=== PATIENT | male | born 1955 | race African-American/Black ===

== ENCOUNTER 2017-02-12 10:02 | Emergency (ER) | payer OTHER ==
[~2017-02-12] VITALS: Ht 170.2 cm; Wt 75.0 kg
[2017-02-12] MEDS ORDERED: SODIUM CHLORIDE 0.9% 1,000 ML IV ONE (11:38)
[2017-02-12] MEDS ORDERED: KETOROLAC 60MG/2ML VIAL IM STA (11:38)
[2017-02-12] MEDS ORDERED: TAMSULOSIN HCL 0.4MG SR CAPSULE PO ONE (11:45)
[2017-02-12] MEDS ORDERED: KETOROLAC 30MG/ML VIAL IV STA (12:08)
[2017-02-12 12:10] LABS: BASOPHILS % 1.2 % (0.0-2.0); EOSINOPHILS % 0.4 % (0.0-5.0); HEMATOCRIT. 43.2 % (42.0-52.0); LYMPHOCYTES % 18.3 % (20.0-50.0); MEAN CORPUSCULAR HEMOGLOBIN 30.9 pg (28.0-32.0); MEAN CORPUSCULAR HGB CONC 34.6 g/dL (31.0-37.0); MEAN CORPUSCULAR VOLUME 89.3 fL (80.0-94.0); MEAN PLATELET VOLUME 7.5 fl (7.4-10.4); MONOCYTES % 7.6 % (2.0-8.0); NEUTROPHILS % 72.5 % (40.0-76.0); PLATELET 188 x1000/uL (130-400); RED BLOOD CELL COUNT 4.84 mill/uL (4.7-6.1); RED CELL DISTRIBUTION WIDTH 13.4 % (11.6-14.6); WHITE BLOOD COUNT 4.8 x1000/uL (4.5-11.0)
[2017-02-12 12:22] LABS: ALANINE AMINOTRANSFERASE 26 IU/L (13-61); ALBUMIN 3.9 g/dL (3.4-5.0); ANION GAP 10; CARBON DIOXIDE 26 mEq/L (21-32); CHLORIDE 108 mEq/L (98-107); INDEX HEMOLYSI 1 (1-3); INDEX ICTERIC 1 (1-4); INDEX LIPEMIC 1 (1-3); UREA NITROGEN BLOOD 10 mg/dL (7-21)
[2017-02-12 12:25] LABS: eGFR > 60 mL/min (>60)
[2017-02-12 12:48] LABS: CLARITY URINE CLOUDY (CLEAR); COLOR URINE YELLOW (YELLOW); GLUCOSE URINE NEGATIVE (NEGATIVE); KETONES URINE NEGATIVE (NEGATIVE); LEUKOCYTE ESTERASE URINE 3+ (NEGATIVE); NITRITE URINE NEGATIVE (NEGATIVE); OCCULT BLOOD URINE 2+ (NEGATIVE); PROTEIN URINE NEGATIVE (NEGATIVE); SPECIFIC GRAVITY URINE 1.005 (1.005-1.030); UROBILINOGEN URINE 0.2 E.U./dL (0.2-1.0)
[2017-02-12 13:17] LABS: *AMPHETAMINES SCREEN URINE NEGATIVE (NEGATIVE); *BARBITURATES SCREEN URINE NEGATIVE (NEGATIVE); *BENZODIAZEPINES SCREEN URINE NEGATIVE (NEGATIVE); *COCAINE SCREEN URINE NEGATIVE (NEGATIVE); CANNABINOID URINE SCREEN NEGATIVE (NEGATIVE); ECSTASY MDMA SCREEN URINE NEGATIVE (NEGATIVE); METHADONE URINE SCREEN NEGATIVE (NEGATIVE); OPIATES URINE SCREEN NEGATIVE (NEGATIVE); PHENCYCLIDINE URINE SCREEN NEGATIVE (NEGATIVE)
[2017-02-12 13:21] LABS: WBC URINE TNTC /hpf (0-2)
[2017-02-12 13:22] LABS: BACTERIA URINE 1+; RBC URINE 0-2 /hpf (0-2); SQUAMOUS EPITHELIAL CELL URINE RARE /lpf (RARE/1+)
[2017-02-12 14:27] VITALS: BP 111/66
== END 2017-02-12 14:58 | disposition home or self-care (01) ==
LOC: ER 12:31
DX: N39.0 Urinary tract infection, site not specified (principal)
CPT/HCPCS: 36415; 74176; 80053; 80305; 81001; 85025; 96361; 96374; 99285; J1885; J7030; Z7610

== ENCOUNTER 2019-12-21 03:10 | Emergency (ER) | payer SELFPAY ==
[~2019-12-21] VITALS: Ht 152.4 cm; Wt 71.0 kg
[2019-12-21 04:18] VITALS: BP 138/84
== END 2019-12-21 04:18 | disposition home or self-care (01) ==
LOC: ER 03:10
DX: J02.9 Acute pharyngitis, unspecified (principal); Z87.442 Personal history of urinary calculi
CPT/HCPCS: 99281

== ENCOUNTER 2020-01-15 10:20 | Emergency (ER) | payer OTHER ==
[~2020-01-15] VITALS: Ht 165.1 cm; Wt 70.5 kg
[2020-01-15] MEDS ORDERED: ACETAMINOPHEN WITH CODEINE 300/30MG TABLET PO STA (11:13)
[2020-01-15 11:35] LABS: CLARITY URINE CLEAR (CLEAR); COLOR URINE YELLOW (YELLOW); KETONES URINE NEGATIVE (NEGATIVE); LEUKOCYTE ESTERASE URINE 3+ (NEGATIVE); NITRITE URINE NEGATIVE (NEGATIVE); OCCULT BLOOD URINE 1+ (NEGATIVE); PH URINE 5.5 (4.5-8.0); PROTEIN URINE NEGATIVE (NEGATIVE); SPECIFIC GRAVITY URINE 1.004 (1.005-1.030); UROBILINOGEN URINE 0.2 E.U./dL (0.2-1.0)
[2020-01-15 13:30] VITALS: BP 133/74
== END 2020-01-15 13:51 | disposition home or self-care (01) ==
LOC: ER 10:20
DX: N39.0 Urinary tract infection, site not specified (principal); R31.0 Gross hematuria; N43.3 Hydrocele, unspecified; R03.0 Elevated blood-pressure reading, without diagnosis of hypertension
CPT/HCPCS: 76870; 81003; 87077; 87186; 93976; 99284

== ENCOUNTER 2022-03-11 21:58 | Emergency (ER) | payer MEDICARE, OTHER ==
[~2022-03-11] VITALS: Ht 157.5 cm; Wt 71.7 kg
[2022-03-11 23:45] LABS: CLARITY URINE CLOUDY (CLEAR); COLOR URINE YELLOW (YELLOW); KETONES URINE NEGATIVE (NEGATIVE); LEUKOCYTE ESTERASE URINE 3+ (NEGATIVE); NITRITE URINE NEGATIVE (NEGATIVE); OCCULT BLOOD URINE 1+ (NEGATIVE); PROTEIN URINE NEGATIVE (NEGATIVE); SPECIFIC GRAVITY URINE 1.005 (1.005-1.030); UROBILINOGEN URINE 0.2 E.U./dL (0.2-1.0)
[2022-03-12 00:08] LABS: *AMPHETAMINES SCREEN URINE NEGATIVE (NEGATIVE); *BARBITURATES SCREEN URINE NEGATIVE (NEGATIVE); *BENZODIAZEPINES SCREEN URINE NEGATIVE (NEGATIVE); *COCAINE SCREEN URINE NEGATIVE (NEGATIVE); CANNABINOID URINE SCREEN NEGATIVE (NEGATIVE); METHADONE URINE SCREEN NEGATIVE (NEGATIVE); OPIATES URINE SCREEN NEGATIVE (NEGATIVE); PHENCYCLIDINE URINE SCREEN NEGATIVE (NEGATIVE)
[2022-03-12 00:16] LABS: HEMATOCRIT 43.2 % (42.0-52.0); HEMOGLOBIN 14.8 g/dL (14.0-18.0); MEAN CORPUSCULAR HEMOGLOBIN 31.1 pg (28.0-32.0); MEAN CORPUSCULAR VOLUME 90.7 fL (80.0-94.0); PLATELET 221 x1000/uL (130-400); RED BLOOD CELL COUNT 4.76 mill/uL (4.7-6.1)
[2022-03-12 00:36] LABS: CHLORIDE 108 mEq/L (98-107)
[2022-03-12] MEDS ORDERED: CEPH500C2 MT (00:58)
[2022-03-12 01:08] VITALS: BP 129/74
== END 2022-03-12 01:08 | disposition home or self-care (01) ==
LOC: ER 21:58
DX: N30.90 Cystitis, unspecified without hematuria (principal)
CPT/HCPCS: 36415; 80053; 80305; 81003; 85027; 87077; 87186; 99283

== ENCOUNTER 2022-04-28 23:06 | Emergency (ER) | payer MEDICARE ==
[~2022-04-28] VITALS: Ht 162.6 cm; Wt 70.0 kg
[~2022-04-28 23:06] MED LIST: CEPH500C2 MT
[2022-04-29 03:30] LABS: CLARITY URINE CLOUDY (CLEAR); COLOR URINE ORANGE (YELLOW); KETONES URINE NEGATIVE (NEGATIVE); LEUKOCYTE ESTERASE URINE 3+ (NEGATIVE); NITRITE URINE NEGATIVE (NEGATIVE); OCCULT BLOOD URINE 3+ (NEGATIVE); PROTEIN URINE TRACE (NEGATIVE); SPECIFIC GRAVITY URINE 1.007 (1.005-1.030); UROBILINOGEN URINE 0.2 E.U./dL (0.2-1.0)
[2022-04-29] MEDS ORDERED: CEPH500T MT (04:27)
[2022-04-29 04:39] VITALS: BP 133/64
[2022-04-29 04:42] LABS: BASOPHILS % 1.1 % (0.0-2.0); EOSINOPHILS % 1.2 % (0.0-5.0); HEMATOCRIT. 41.7 % (42.0-52.0); HEMOGLOBIN. 14.2 g/dL (14.0-18.0); LYMPHOCYTES % 31.7 % (20.0-50.0); MEAN CORPUSCULAR HEMOGLOBIN 30.9 pg (28.0-32.0); MEAN CORPUSCULAR VOLUME 90.4 fL (80.0-94.0); MEAN PLATELET VOLUME 7.8 fl (7.4-10.4); MONOCYTES % 7.7 % (2.0-8.0); NEUTROPHILS % 58.3 % (40.0-76.0); PLATELET 207 x1000/uL (130-400); RED BLOOD CELL COUNT 4.61 mill/uL (4.7-6.1)
[2022-04-29 04:50] LABS: CHLORIDE 107 mEq/L (98-107)
== END 2022-04-29 04:39 | disposition home or self-care (01) ==
LOC: ER 23:06
DX: R31.0 Gross hematuria (principal); R10.30 Lower abdominal pain, unspecified
CPT/HCPCS: 36415; 80048; 81003; 85025; 87077; 87186; 99283

== ENCOUNTER 2024-04-18 20:35 | Emergency (ER) | payer MEDICARE, OTHER ==
[~2024-04-18] VITALS: Ht 157.5 cm; Wt 69.0 kg
[~2024-04-18 20:35] MED LIST changes: +CEPH500T MT
[2024-04-18 20:50] VITALS: O2SAT 97
[2024-04-18 21:15] LABS: CLARITY URINE CLOUDY (CLEAR); COLOR URINE RED (YELLOW); GLUCOSE URINE NEGATIVE (NEGATIVE); KETONES URINE NEGATIVE (NEGATIVE); LEUKOCYTE ESTERASE URINE 3+ (NEGATIVE); NITRITE URINE NEGATIVE (NEGATIVE); OCCULT BLOOD URINE 3+ (NEGATIVE); PH URINE 7.5 (4.5-8.0); PROTEIN URINE 1+ (NEGATIVE); SPECIFIC GRAVITY URINE 1.004 (1.005-1.030); UROBILINOGEN URINE 0.2 E.U./dL (0.2-1.0)
[2024-04-18 21:34] LABS: BACTERIA URINE 1+; RBC URINE TNTC /hpf (0-2); SQUAMOUS EPITHELIAL CELL URINE FEW /lpf (RARE/1+); WBC URINE TNTC /hpf (0-2)
[2024-04-18 21:56] LABS: BASOPHILS % 1.2 % (0.0-2.0); EOSINOPHILS % 0.9 % (0.0-5.0); HEMATOCRIT. 41.2 % (42.0-52.0); HEMOGLOBIN. 14.2 g/dL (14.0-18.0); LYMPHOCYTES % 32.7 % (20.0-50.0); MEAN CORPUSCULAR HEMOGLOBIN 31.5 pg (28.0-32.0); MEAN CORPUSCULAR HGB CONC 34.5 g/dL (31.0-37.0); MEAN CORPUSCULAR VOLUME 91.3 fL (80.0-94.0); MEAN PLATELET VOLUME 7.3 fl (7.4-10.4); MONOCYTES % 8.8 % (2.0-8.0); NEUTROPHILS % 56.4 % (40.0-76.0); PLATELET 286 x1000/uL (130-400); RED BLOOD CELL COUNT 4.51 mill/uL (4.7-6.1); RED CELL DISTRIBUTION WIDTH 13.3 % (11.6-14.6); WHITE BLOOD COUNT 5.2 x1000/uL (4.5-11.0)
[2024-04-18 21:59] LABS: CHLORIDE 108 mEq/L (98-107); SODIUM 139 mEq/L (136-145)
[2024-04-18 22:00] LABS: CALCIUM 9.9 mg/dL (8.7-10.4); CARBON DIOXIDE 25 mEq/L (21-32)
[2024-04-18 22:05] LABS: CREATININE 1.1 mg/dL (0.6-1.3); GLUCOSE 116 mg/dL (70-105); UREA NITROGEN BLOOD 8 mg/dL (9-23)
[2024-04-19] MEDS ORDERED: PHEN-910 MT (00:44)
[2024-04-19] MEDS ORDERED: SULF1TAB48 MT (00:44)
[2024-04-19 01:14] VITALS: BP 156/72; PULSE 75; RESP 16; TEMP 98.4
== END 2024-04-19 01:15 | disposition home or self-care (01) ==
LOC: ER 20:35
DX: R31.9 Hematuria, unspecified (principal); N43.3 Hydrocele, unspecified; N30.00 Acute cystitis without hematuria; N50.3 Cyst of epididymis
CPT/HCPCS: 36415; 76770; 76870; 80048; 81003; 85025; 87077; 87186; 93976; 99284

== ENCOUNTER 2024-06-11 20:00 | Emergency (ER) | payer OTHER ==
[~2024-06-11] VITALS: Ht 170.2 cm; Wt 70.0 kg
[~2024-06-11 20:00] MED LIST changes: +PHEN-910 MT; +SULF1TAB48 MT
[2024-06-11 20:07] VITALS: O2SAT 98
[2024-06-11 20:57] LABS: CLARITY URINE TURBID (CLEAR); COLOR URINE DARK YELLOW (YELLOW); GLUCOSE URINE NEGATIVE (NEGATIVE); KETONES URINE NEGATIVE (NEGATIVE); LEUKOCYTE ESTERASE URINE 3+ (NEGATIVE); NITRITE URINE NEGATIVE (NEGATIVE); OCCULT BLOOD URINE 1+ (NEGATIVE); PROTEIN URINE 1+ (NEGATIVE); SPECIFIC GRAVITY URINE 1.016 (1.005-1.030)
[2024-06-11 21:22] LABS: BACTERIA URINE 2+; SQUAMOUS EPITHELIAL CELL URINE 1+ /lpf (RARE/1+); WBC URINE TNTC /hpf (0-2)
[2024-06-11] MEDS ORDERED: CEPH500C2 MT (22:12)
[2024-06-11 22:53] VITALS: BP 135/75; PULSE 90; RESP 16; TEMP 36.94740; O2SAT 98
[2024-06-12] MEDS ORDERED: [UNRECOGNIZED DRUG - OTHER] PO (18:25)
[2024-06-12] MEDS ORDERED: MULT-1204 PO (18:25)
== END 2024-06-11 22:55 | disposition home or self-care (01) ==
LOC: ER 20:00
DX: N39.0 Urinary tract infection, site not specified (principal)
CPT/HCPCS: 81003; 87077; 87186; 99283